=== PATIENT | male | born 1985 | race Caucasian/White ===

== ENCOUNTER 2025-03-29 15:51 | Emergency (ER) | payer SELFPAY ==
[~2025-03-29] VITALS: Ht 170.2 cm; Wt 75.0 kg
[2025-03-29 16:01] VITALS: BP 100/56; PULSE 106; RESP 16; TEMP 39.4; O2SAT 98
[2025-03-29] MEDS ORDERED: ACETAMINOPHEN 325MG TABLET ONE (16:06)
[2025-03-29] MEDS ORDERED: ACETAMINOPHEN 325MG TABLET PO STA (16:59)
[2025-03-29] MEDS ORDERED: SODIUM CHLORIDE 0.9% (SEPSIS BOLUS) IV ONE (17:00)
[2025-03-29] MEDS ORDERED: AZITHROMYCIN 500MG/250ML 250 ML IV ONE (17:00)
[2025-03-29] MEDS ORDERED: CEFTRIAXONE 1GM/50ML 50 ML IV ONE (17:00)
== END 2025-03-29 17:25 | disposition left against medical advice (07) ==
LOC: ER 15:51
DX: R10.84 Generalized abdominal pain (principal); R11.2 Nausea with vomiting, unspecified; R19.7 Diarrhea, unspecified
CPT/HCPCS: 99283; J7030; Z7610